=== PATIENT | male | born 1995 | race Caucasian/White ===

== ENCOUNTER 2024-05-22 11:14 | Emergency (ER) | payer BC, SELFPAY ==
[2024-05-22 11:20] VITALS: BP 117/92
--- NOTE | 2024-05-22 11:44 | ED.GENMED ---
History of Present Illness
<Love Gutierrez PA-C - Last Filed: 05/22/24 18:59>
General
Chief Complaint: Abdominal Pain
Source: patient
Exam Limitations: none
Time Seen by Provider: 05/22/24 11:34
Nursing documentation reviewed up to this point in time: agreed with
History of Present Illness
History of Present Illness:
Patient is a 28-year-old male presenting to the emergency department for evaluation of abdominal pain. Patient states that he has had upper abdominal pain intermittently over the past 2 weeks and then noticed that pain seem to migrate to his right
lower abdomen this past Sunday. Also noticed some pain in his right lower back. Patient thinks her pain is somewhat worse with twisting movements but has not noticed any other alleviating or exacerbating. pain is associated with nausea, as well
but no episodes of vomiting. He endorses very little appetite over the past few days. Bowel movements been normal. Patient denies any fevers, chills, or urinary symptoms
Patient was seen by his primary care provider this morning who sent him to the emergency department to rule out appendicitis.
Patient does have a history of kidney stones but states this pain is much different.
Review of Systems
<Love Gutierrez PA-C - Last Filed: 05/22/24 18:59>
Review of Systems
Allergies reviewed?: Yes
All Other Systems: ROS reviewed and negative except as documented in HPI and ROS
Phy Exam
<Love Gutierrez PA-C - Last Filed: 05/22/24 18:59>
Physical Exam
Physical Exam:
Vitals: Patient's vital signs are stable. Afebrile
General: Patient is mildly uncomfortable due to pain.Nontoxic-appearing
Skin: Warm and dry, no rashes or lesions
Head: Normocephalic, atraumatic
Eyes: Sclera nonicteric. EOMs intact. No nystagmus.
Throat: Protecting airway
Neck: Normal ROM, no cervical spine tenderness, no meningismus
Cardiac: Regular rate and rhythm, no murmurs.
Pulm: Normal respiratory effort, no wheezes, rales, rhonchi heard on exam.
Abdomen: Abdomen soft. Mild tenderness in right lower quadrant without rebound tenderness or guarding. No CVA tenderness
Extremities: No evidence of cyanosis or edema. Great distal pulses
Neuro: AAOx3. CN II-XII intact. No focal neurologic deficits.
Psychiatric: Normal affect.
Course
<Love Gutierrez PA-C - Last Filed: 05/22/24 18:59>
Orders/Labs/Results
Orders:
Orders
05/22/24 12:00
0.9% Sodium Chloride 1000 ml [Nss] 1,000 ml IV BOLUS
Ketorolac [Toradol] 15 mg IV NOW STA
Ondansetron Injectable [Zofran] 4 mg IV NOW STA
05/22/24 12:01
CT Abd/Pel (IV only)-[facility] only Urgent
Comment:
Reason For Exam: RLQ abdominal pain, N, +anorexia
05/22/24 12:13
Complete Blood Count/With Diff Urgent
Comprehensive Metabolic Panel Urgent
Lipase Urgent
05/22/24 14:19
Urinalysis Reflex To Culture Urgent
Date Specimen was Collected: 05/22/24
Time Specimen was Collected: 14:18
Abnormal Lab Results
05/22/24 05/22/24
12:13 14:19
MPV 10.6 H fL
(7.4-10.4)
Total Bilirubin 1.4 H mg/dl
(0.2-1.3)
Urine Ketones 2+ A
(Negative)
05/22/24 12:13
05/22/24 12:13
Vital Signs
Initial and Last Documented VS:
Initial Vital Signs
Temp Pulse Resp BP Pulse Ox
98.3 F 96 18 117/92 100
05/22/24 11:20 05/22/24 11:20 05/22/24 11:20 05/22/24 11:20 05/22/24 11:20
Last Documented Vital Signs
Temp Pulse Resp BP Pulse Ox
98.3 F 84 16 116/76 99
05/22/24 11:20 05/22/24 15:48 05/22/24 15:48 05/22/24 15:48 05/22/24 15:48
<Sukhdeep Ramirez, DO - Last Filed: 05/22/24 12:22>
Orders/Labs/Results
Orders:
Orders
05/22/24 12:00
0.9% Sodium Chloride 1000 ml [Nss] 1,000 ml IV BOLUS
Ketorolac [Toradol] 15 mg IV NOW STA
Ondansetron Injectable [Zofran] 4 mg IV NOW STA
05/22/24 12:01
CT Abd/Pel (IV only)-[facility] only Urgent
Comment:
Reason For Exam: RLQ abdominal pain, N, +anorexia
05/22/24 12:13
Complete Blood Count/With Diff Urgent
Comprehensive Metabolic Panel Urgent
Lipase Urgent
05/22/24 14:19
Urinalysis Reflex To Culture Urgent
Date Specimen was Collected: 05/22/24
Time Specimen was Collected: 14:18
Abnormal Lab Results
05/22/24 05/22/24
12:13 14:19
MPV 10.6 H fL
(7.4-10.4)
Total Bilirubin 1.4 H mg/dl
(0.2-1.3)
Urine Ketones 2+ A
(Negative)
05/22/24 12:13
05/22/24 12:13
Vital Signs
Initial and Last Documented VS:
Initial Vital Signs
Temp Pulse Resp BP Pulse Ox
98.3 F 96 18 117/92 100
05/22/24 11:20 05/22/24 11:20 05/22/24 11:20 05/22/24 11:20 05/22/24 11:20
Last Documented Vital Signs
Temp Pulse Resp BP Pulse Ox
98.3 F 84 16 116/76 99
05/22/24 11:20 05/22/24 15:48 05/22/24 15:48 05/22/24 15:48 05/22/24 15:48
<Love Gutierrez PA-C - Last Filed: 05/22/24 18:59>
MDM/Problems Addressed
Differential Diagnosis Includes:
Not limited to: Muscle strain, appendicitis, mesenteric adenitis, UTI, kidney stone
MDM/Problems Addressed:
28-year-old male with history as documented presenting from primary care office for evaluation of abdominal pain and concern for appendicitis. Reports approximately 2 weeks of vague upper abdominal pain with migration of pain to right lower
quadrant few days ago associated with nausea and anorexia. No fevers, chills. Vital signs stable. Patient is afebrile. Physical exam as above. Patient is nontoxic-appearing. Abdomen is soft with mild tenderness in right lower quadrant�no
rebound tenderness or guarding. Heart regular rate rhythm. Lungs clear bilaterally. Basic labs were obtained which show no acute abnormalities. No leukocytosis. Low suspicion for acute appendicitis but given concern and duration of symptoms
will check CT abdomen/pelvis. Will check urinalysis. Patient was given IV fluids, Zofran, Toradol.
Into reassess patient. He remains well-appearing without any episodes of vomiting since arrival to emergency department. Reports only very mild discomfort. CT scan pending.
CT reports shows no acute intra-abdominal pathology. No evidence of appendicitis. Appendix reported to be normal. There is a small 2 mm nonobstructing calculus noted right mid kidney which I do not suspect would be contributing to any of the
symptoms. Patient was made aware. urinalysis pending. Anticipate discharge
Urinalysis shows no signs of infection. Patient remained stable and well-appearing. Workup in emergency department has been negative. No indication for admission. Patient will be discharged with Zofran as needed, primary care follow-up. Return
precautions discussed with patient at length. Patient and patient's family expressed understanding and are comfortable with plan
Chronic conditions affecting care:
N/A
<Love Gutierrez PA-C - Last Filed: 05/22/24 18:59>
*Radiology
Radiology exam reviewed: preliminary read by ED provider and radiology read reviewed
*Pulse Oximetry
Patient hypoxic: no
*EKG
Interpreted by ED Provider?: NA
*Route Delivery Clerk Interpretation
Rate: Route Delivery Clerk- N/A
*Critical Care Note
Total Time (30-74mins, 75-104mins- exclusive of procedures): Not Applicable
ED Attending Note
<Love Gutierrez PA-C - Last Filed: 05/22/24 18:59>
-
Portions of this chart may have been created with voice recognition software.� Occasional wrong word or��sound alike� substitutions may have occurred due to the inherent limitations of voice recognition software.
<Sukhdeep Ramirez DO - Last Filed: 05/22/24 12:22>
ED Attending Note
Patient seen and examined by attending physician: Yes
I performed the substantive portion of visit, reviewed & personally made and approve the management plan that is documented in note by myself or REMIGIO.: Yes
ED Attending Note:
I have seen and evaluated the patient with a [id number] encounter. I have spoken to the advance practicer provider and involved in the medical history, the physical exam, medical decision making.
Evaluation and management service: agree unless noted differently below.
Results interpretation: agree unless noted differently below.
Focused HPI: 28-year-old male presenting with right lower quadrant pain. Did start with vague abdominal pain is now rating to his right side. His PCP sent him in to rule out acute appendicitis. Patient is unsure if this could be another kidney
stone
Physical exam: Sitting in bed comfortably. Right lower quadrant tenderness. No rebound
Medical Decision Making: Given his history, will obtain CT to rule out acute appendicitis
Discharge Plan
Departure
Patient Disposition: Home (Routine Discharge)
Date of Disposition: 05/22/24
Time of Disposition: 15:38
Patient with high blood pressure during this ER visit?: Yes
Condition: Good
Covid-19: Not Applicable
Discharge Problem:
Abdominal pain, Nausea
Instructions: Nausea and Vomiting, Adult (DC), Abdominal Pain, BLOOD PRESSURE
Prescriptions:
New
ondansetron 4 mg tablet,disintegrating
4 mg PO Q8H PRN (Reason: nausea and vomiting) Qty: 10 0RF
Referrals:
Esmer Bianchi CRNP [Family Provider] - Follow up in 5-7 days
Activity Restrictions/Additional Instructions:
RETURN TO THE EMERGENCY DEPARTMENT WITH ANY FEVERS, CHILLS, PERSISTENT/WORSENING ABDOMINAL PAIN, INTRACTABLE NAUSEA/VOMITING, WORSENING IN CURRENT SYMPTOMS OR ANY OTHER CONCERNS
-We are unsure the exact cause of your abdominal pain today. There is no evidence of appendicitis.
-As discussed�it is important stay well-hydrated. You should take Motrin and/or Tylenol as needed for discomfort. A prescription for Zofran has been sent to your pharmacy that he can take as needed for persistent nausea.
-Follow-up with your primary care provider for further evaluation/management to ensure that symptoms are improving.
Monitor your symptoms closely and do not hesitate to return to the emergency department any acute worsening/new symptoms
Interventions
Interventions:
*Risk Screen - Suicide Last Done: 05/22/24 11:20
*General Assessment Last Done: 05/22/24 11:20
*Neglect/Abuse Screening Last Done: 05/22/24 11:20
*ED COVID-19 Vaccine History Last Done: 05/22/24 12:12
*Nursing Disposition Last Done: 05/22/24 15:48
LN-Mpilla-Xyalwyjmtu Assessment Last Done: 05/22/24 15:04
Discharge Date and Time
Discharge Date/Time: 05/22/24 15:49
Print Language: GUATEMAL[place]
[2024-05-22] MEDS: NSS 1000 IV (12:09)
[2024-05-22] MEDS: TORADOL 15 MG IV (12:10)
[2024-05-22 12:12] VITALS: BMI 24.4
[2024-05-22 12:30] LABS: % Basophils 0.6 % (0-2); % Eosinophils 1.2 % (0-6); % Immature Granulocytes 0.5 % (0-0.5); % Lymphocytes 30.1 % (20.5-51.1); % Monocytes 6.1 % (1.7-9.3); % Neutrophils 61.5 % (42.2-75.2); Absolute Eosinophils 0.1 10^3/uL (0-0.7); Absolute Monocytes 0.4 10^3/uL (0.1-0.6); Hematocrit 47.4 % (39.0-52.0); Hemoglobin 16.4 g/dL (13.0-18.0); Mean Corp Hgb Conc. 34.6 g/dL (33.0-37.0); Mean Corpuscular Hgb 28.6 pg (27.0-31.0); Mean Corpuscular Volume 82.7 fL (80.0-94.0); Mean Platelet Volume 10.6 fL (7.4-10.4); Nucleated Red Blood Cells % 0 % (-); Platelet Count 250 10^3/uL (130-400); Red Blood Cell Count 5.73 10^6/uL (4.70-6.10); Red Cell Dist. Width 12.1 % (11.5-14.5); White Blood Cell Count 6.6 10^3/uL (4.8-10.8)
[2024-05-22 12:40] LABS: ALT (SGPT) 35 U/L (0-50); AST (SGOT) 27 U/L (17-59); Albumin 4.9 g/dl (3.5-5.0); Alkaline Phosphatase 87 U/L (38-126); Blood Urea Nitrogen 13 mg/dl (9-20); Calcium 10.2 mg/dl (8.4-10.2); Carbon Dioxide 28 mmol/L (22-30); Chloride 103 mmol/L (98-107); Estimated Creatinine Clearance 120 ml/min; Glucose 97 mg/dl (70-99); Lipase 25 U/L (23-300); Potassium 4.4 mmol/L (3.5-5.1); Sodium 138 mmol/L (135-145); Total Bilirubin 1.4 mg/dl (0.2-1.3); eGFR > 60.00
[2024-05-22] MEDS: ZOFRAN 4 MG IV (14:20)
[2024-05-22 14:49] LABS: Urine Albumin Negative (Neg - Trace); Urine Bilirubin Negative (Negative); Urine Character Clear (Clear); Urine Color Yellow; Urine Glucose Negative (Negative); Urine Ketone 2+ (Negative); Urine Leukocyte Negative (Negative); Urine Nitrite Negative (Negative); Urine Occult Blood Negative (Negative); Urine Urobilinogen Negative (Neg - 1+)
[2024-05-22 15:48] VITALS: BP 116/76
== END 2024-05-22 15:49 | disposition home or self-care (01) ==
LOC: EMR 11:14
PROVIDERS: Physician Assistant; EMERGENCY PHYSICIAN Student in an Organized Health Care Education/Training Program; FAMILY PHYSICIAN Nurse Practitioner Family
DX: R10.9 Unspecified abdominal pain (principal); R11.0 Nausea; Z87.442 Personal history of urinary calculi
CPT/HCPCS: 99284; 74177; 80053; 81003; 83690; 85025; Q9967